=== PATIENT | male | born 1985 | race Caucasian/White ===

== ENCOUNTER 2017-01-05 10:04 | Emergency (ER) | payer SELFPAY ==
[~2017-01-05] VITALS: Ht 167.6 cm; Wt 79.0 kg
[2017-01-05 10:10] VITALS: Ht 167.6 cm; Wt 79.0 kg
[2017-01-05] MEDS ORDERED: KETOROLAC 30 MG INJ IV STA (10:21)
[2017-01-05] MEDS ORDERED: CLINDAMYCIN 600 MG/D5W (PMX) 50 ML IVPB SCH (10:30)
[2017-01-05] MEDS ORDERED: LIDOCAINE 1% (MDV) 20 ML INJ SC ONE (10:30)
[2017-01-05] MEDS ORDERED: HYDROCODONE/APAP (5/325) TAB PO ONE (10:30)
[2017-01-05 11:08] LABS: ADD SCAN DIFF NO
--- NOTE | 2017-01-05 11:08 | RADRPT ---
PROCEDURE: XR Right index finger CLINICAL INDICATION: Infection, pain TECHNIQUE: AP, oblique, and lateral radiographs were submitted. COMPARISON: None FINDINGS: Osseous structures: appear well mineralized and intact with no fracture or destructive process iden tified. Joint spaces: are well maintained, with no significant spurring, erosion or joint effusion evident. Soft tissues: There is mild diffuse soft tissue swelling. IMPRESSION: 1. Soft tissue swelling seen about the right index finger. 2. Otherwise, unremarkable right index finger study. Physician Nina Date Time Electronically viewed and signed by Hari Regalado Physician on 01/05/2017 11:08 /
[2017-01-05 11:12] LABS: BASOPHIL # 0.1 10^3/ul (0.0-0.1); BASOPHILS % 0.8 % (0.0-2.0); EOSINOPHILS # 0.2 10^3/ul (0.0-0.5); EOSINOPHILS % 1.2 % (0.0-7.0); HEMATOCRIT 42.5 % (42.0-52.0); HEMOGLOBIN 14.7 g/dl (14.0-18.0); LYMPHOCYTES # 1.5 10^3/ul (0.8-2.9); LYMPHOCYTES % 11.4 % (15.0-51.0); MEAN CORPUSCULAR HEMOGLOBIN 31.3 pg (29.0-33.0); MEAN CORPUSCULAR HGB CONC 34.6 g/dl (32.0-37.0); MEAN CORPUSCULAR VOLUME 90.6 fl (82.0-101.0); MEAN PLATELET VOLUME 10.4 fl (7.4-10.4); MONOCYTE # 0.8 10^3/ul (0.3-0.9); NEUTROPHIL # 10.4 10^3/ul (1.6-7.5); NEUTROPHILS % 80.4 % (39.0-77.0); PLATELET COUNT 307 10^3/UL (140-415); RED BLOOD COUNT 4.69 10^6/ul (4.70-6.10); WHITE BLOOD COUNT 12.9 10^3/ul (4.8-10.8)
[2017-01-05 11:23] LABS: POTASSIUM 3.9 mmol/L (3.5-5.1)
[2017-01-05 11:26] LABS: ALBUMIN/GLOBULIN RATIO 1.42; BILIRUBIN,INDIRECT 0.5 mg/dl (0-1.1); BILIRUBIN,TOTAL 0.5 mg/dl (0.2-1.3); CALCIUM 8.9 mg/dl (8.4-10.2); CREATININE 0.94 mg/dl (0.61-1.24); TOTAL PROTEIN 6.8 g/dl (6.1-8.1)
[2017-01-05] MEDS ORDERED: TRIMETHOPRIM/SULFAMETHOX (DS) TAB PO ONE (11:30)
[2017-01-05] MEDS ORDERED: IBUPROFEN 600 MG TAB PO ONE (11:30)
[2017-01-05] MEDS ORDERED: BACTDS PO (11:31)
[2017-01-05] MEDS ORDERED: HYDR-906 PO (11:31)
[2017-01-05] MEDS ORDERED: IBUP-1542 PO (11:31)
[2017-01-05] MEDS ORDERED: CEPH-443 PO (11:31)
--- NOTE | 2017-01-05 11:34 | ERD ---
ER Documentation Chief Complaint Date/Time DATE: 01/05/17 TIME: 11:32 Chief Complaint right 2nd finger redness and swelling since friday HPI This 31-year-old male complains of approximately 40 history of pain swelling redness in his right index finger. Denies any history of trauma. It started with a pimple he states. He has restricted range of motion due to pain but no weakness. ROS All systems reviewed and are negative except as per history of present illness. Medications Home Meds Active Scripts Ibuprofen* (Motrin*) 600 Mg Tab, 600 MG PO Q6H Y for PAIN, #14 TAB Prov:MICHELLE LINN MD 01/05/17 Cephalexin* (Keflex*) 500 Mg Capsule, 500 MG PO QID for 10 Days, CAP Prov:MICHELLE LINN MD 01/05/17 Sulfamethoxazole-Trimethoprim* (Bactrim* DS) 800-160 Mg Tab, 1 TAB PO BID for 10 Days, TAB Prov:MICHELLE LINN MD 01/05/17 Hydrocodone/Acetaminophen ([place] 5-325 Tablet) 1 Each Tablet, 1 TAB PO Q6H Y for PAIN, #14 TAB Prov:MICHELLE LINN MD 01/05/17 PMhx/Soc Medical and Surgical Hx: pt denies Medical Hx, pt denies Surgical Hx Physical Exam Vitals Vital Signs Date Time Temp Pulse Resp B/P Pulse Ox O2 Delivery O2 Flow Rate FiO2 01/05/17 10:10 97.7 76 18 120/66 100 Physical Exam Const: [] Alert, [id number] per Head: Atraumatic Eyes: Normal Conjunctiva ENT: Normal External Ears, Nose and Mouth. Neck: Full range of motion..~ No meningismus. Resp: Clear to auscultation bilaterally Cardio: Regular rate and rhythm, no murmurs Abd: Soft, non tender, non distended. Normal bowel sounds Skin: No petechiae or rashes Back: No midline or flank tenderness Ext: No cyanosis, or edema. On the dorsum of the right index finger proximally there is some erythema and a small pointing abscess. There is possibly some previous spontaneous discharge. There is no significant appreciable proximal tendon tenderness. There is no restricted range of motion set mildly due to pain and no deficits appreciated. Neur: Awake and alert Psych: Normal Mood and Affect Result Diagram: 01/05/17 1040 01/05/17 1040 Results 24 hrs Laboratory Tests Test 01/05/17 10:40 White Blood Count 12.910^3/ul Red Blood Count 4.6910^6/ul Hemoglobin 14.7g/dl Hematocrit 42.5% Mean Corpuscular Volume 90.6fl Mean Corpuscular Hemoglobin 31.3pg Mean Corpuscular Hemoglobin Concent 34.6g/dl Red Cell Distribution Width 12.0% Platelet Count 35134^3/UL Mean Platelet Volume 10.4fl Neutrophils % 80.4% Lymphocytes % 11.4% Monocytes % 6.0% Eosinophils % 1.2% Basophils % 0.8% Nucleated Red Blood Cells % 0.0/100WBC Neutrophils # 10.410^3/ul Lymphocytes # 1.510^3/ul Monocytes # 0.810^3/ul Eosinophils # 0.210^3/ul Basophils # 0.110^3/ul Nucleated Red Blood Cells # 0.010^3/ul Sodium Level 139mmol/L Potassium Level 3.9mmol/L Chloride Level 108mmol/L Carbon Dioxide Level 25mmol/L Anion Gap 10 Blood Urea Nitrogen 12mg/dl Creatinine 0.94mg/dl Glucose Level 95mg/dl Calcium Level 8.9mg/dl Total Bilirubin 0.5mg/dl Direct Bilirubin 0.00mg/dl Indirect Bilirubin 0.5mg/dl Aspartate Amino Transf (AST/SGOT) 26IU/L Alanine Aminotransferase (ALT/SGPT) 30IU/L Alkaline Phosphatase 75IU/L Total Protein 6.8g/dl Albumin 4.0g/dl Globulin 2.80g/dl Albumin/Globulin Ratio 1.42 Current Medications Medications (Trade) Dose Ordered Sig/Tess Route PRN Reason Start Time Stop Time Status Last Admin Dose Admin Ketorolac Tromethamine 30 mg 30 mg ONCE STAT IV 01/05/17 10:21 01/05/17 10:54 DC 01/05/17 10:28 Clindamycin HCl/ Dextrose (Cleocin 600 Mg/ D5W (Pmx)) 50 ml @ 50 mls/hr ONCE IVPB 01/05/17 10:30 01/05/17 11:29 DC 01/05/17 10:54 Lidocaine (Xylocaine 1% (Mdv) 20 ml) 20 ml ONCE ONCE SC 01/05/17 10:30 01/05/17 10:54 DC Acetaminophen/ Hydrocodone Bitart ([place] (5/325)) 1 tab ONCE ONCE PO 01/05/17 10:30 01/05/17 10:54 DC 01/05/17 10:28 Ibuprofen (Motrin) 600 mg ONCE ONCE PO 01/05/17 11:30 01/05/17 11:31 DC Trimethoprim/ Sulfamethoxazole (Bactrim (Ds)) 1 tab ONCE ONCE PO 01/05/17 11:30 01/05/17 11:31 DC Procedures/MDM X-ray right index finger 2V Interpreted by me: Bones: [No fracture] Joints: [No dislocation] Foreign body: [None]. Impression-soft tissue swelling of the index finger without fracture dislocation or foreign body. Patient has signs and symptoms of right finger abscess without current signs to suggest tenosynovitis or sepsis. There is no evidence of fracture, dislocation , signs or symptoms to suggest osteomyelitis or septic arthritis, tendon or neurologic deficit or foreign body. An IV was obtained. Patient was given clindamycin 600 mg IV and Bactrim double strength p.o. He was given [place] 5 mg of mouth and Toradol 30 mg IV. Procedure note-the right index finger was prepped with Betadine. 3 cc of lidocaine was used for local infiltration. #11 scalpel was used to incise the area of pustule and possible fluctuance. Small amount of pus was expressed. Approximately 3 cm of quarter-inch gauze was used to pack the wound. The patient tolerated procedure well and the wound was dressed. Patient was discharged home with a prescription of Bactrim, Keflex and [place] instructions for a wound check in 2 days. He should return sooner for fevers, redness, new or worsening symptoms otherwise for a wound check as directed. Departure Diagnosis: Primary Impression: Abscess Condition: Stable Patient Instructions: Abscess, Incision And Drainage Additional Instructions: Recheck in 2 days for gauze removal. Recheck sooner for worsening redness, fevers, new worsening symptoms. MICHELLE LINN MD Jan 05, 2017 11:34
[2017-01-05 11:40] VITALS: BP 116/72; PULSE 64; RESP 18; TEMP 98
== END 2017-01-05 12:17 | disposition home or self-care (01) ==
LOC: FTE 10:04
DX: L02.511 Cutaneous abscess of right hand (principal)
CPT/HCPCS: 26010; 73140; 80053; 85025; 96365; 96375; 99284; J1885

== ENCOUNTER 2017-01-07 09:34 | Emergency (ER) | payer SELFPAY ==
[~2017-01-07] VITALS: Ht 165.1 cm; Wt 68.9 kg
[~2017-01-07 09:34] MED LIST: BACTDS PO; CEPH-443 PO; HYDR-906 PO; IBUP-1542 PO
[2017-01-07 09:39] VITALS: Ht 165.1 cm; Wt 68.9 kg
--- NOTE | 2017-01-07 10:48 | ERD ---
ER Documentation Chief Complaint Date/Time DATE: 01/07/17 TIME: 10:47 Chief Complaint left index wound check HPI This 31-year-old male complains of left index finger pain after an I&D 2 days ago. Here for wound check. Seen by me and had a abscess drained on the proximal aspect of his left index finger. He says that his pain and swelling is significant improved. He still noticed some redness around the knuckle. He has restricted range of motion due to pain but no weakness. ROS All systems reviewed and are negative except as per history of present illness. Medications Home Meds Active Scripts Ibuprofen* (Motrin*) 600 Mg Tab, 600 MG PO Q6H Y for PAIN, #14 TAB Prov:MICHELLE LINN MD 01/05/17 Cephalexin* (Keflex*) 500 Mg Capsule, 500 MG PO QID for 10 Days, CAP Prov:MICHELLE LINN MD 01/05/17 Sulfamethoxazole-Trimethoprim* (Bactrim* DS) 800-160 Mg Tab, 1 TAB PO BID for 10 Days, TAB Prov:MICHELLE LINN MD 01/05/17 Hydrocodone/Acetaminophen ([place] 5-325 Tablet) 1 Each Tablet, 1 TAB PO Q6H Y for PAIN, #14 TAB Prov:MICHELLE LINN MD 01/05/17 Allergies Allergies: Coded Allergies: No Known Allergy (Unverified , 01/05/17) PMhx/Soc Medical and Surgical Hx: pt denies Medical Hx, pt denies Surgical Hx Hx Alcohol Use: No Hx Substance Use: No Hx Tobacco Use: No Physical Exam Vitals Vital Signs Date Time Temp Pulse Resp B/P Pulse Ox O2 Delivery O2 Flow Rate FiO2 01/07/17 09:39 98.1 61 18 111/60 99 Physical Exam Const: [] Alert, [id number]-[id number] per Head: Atraumatic Eyes: Normal Conjunctiva ENT: Normal External Ears, Nose and Mouth. Neck: Full range of motion..~ No meningismus. Resp: Clear to auscultation bilaterally Cardio: Regular rate and rhythm, no murmurs Abd: Soft, non tender, non distended. Normal bowel sounds Skin: No petechiae or rashes Back: No midline or flank tenderness Ext: No cyanosis, or edema. The wound was undressed on his left index finger. It is significantly less red and less swollen and appears to be improving. There are some minimal surrounding induration and redness proximally to the wound. There is no appreciable proximal tendon tenderness or restricted range of motion weakness. Neur: Awake and alert Psych: Normal Mood and Affect Procedures/MDM Patient presents for recheck on her left index finger abscess drained 2 days ago. Appears to be healing satisfactorily. There is some surrounding redness will be given clindamycin 600 mg IM and instructions for additional wound check in 2 days. He should return sooner for worsening redness, fever or new worsening symptoms. Signs or symptoms do not suggest tenosynovitis, osteomyelitis, foreign body current additional complications Departure Diagnosis: Primary Impression: Encounter for wound re-check Condition: Stable Patient Instructions: Abscess, Incision And Drainage Additional Instructions: Continue antibiotics. Recheck in another 2-3 days or sooner for worsening redness, fevers, new worsening symptoms. MICHELLE LINN MD Jan 07, 2017 10:48
[2017-01-07] MEDS ORDERED: CLINDAMYCIN 300 MG INJ IM ONE (11:00)
== END 2017-01-07 14:00 | disposition home or self-care (01) ==
LOC: FTE 09:34
DX: M79.89 Other specified soft tissue disorders (principal); Z48.01 Encounter for change or removal of surgical wound dressing
CPT/HCPCS: 96372